=== PATIENT | male | born 1995 | race African-American/Black ===

== ENCOUNTER 2017-05-03 11:39 | Emergency (ER) | payer OTHER ==
[~2017-05-03] VITALS: Ht 190.5 cm; Wt 118.0 kg
[2017-05-03 11:40] VITALS: BP 165/74; PULSE 107; RESP 16; TEMP 98; O2SAT 99
--- NOTE | 2017-05-03 12:31 | PD ---
HPI Chief Complaint: Musculoskeletal Complaint Time Seen by Provider: 12:04 Travel History International Travel<30 days: No Contact w/Intl Traveler<30days: No Traveled to known affect area: No History of Present Illness HPI 21-year-old -[place] male presents the emergency department with 2 week history of right knee pain and swelling. Patient states he injured it playing basketball 2 weeks ago. He has continued discomfort, effusion, and the feeling that is going to give out while walking. Patient states she has had a similar injury to this knee years ago without orthopedic follow-up. Patient denies numbness, tingling, or weakness. He has been taking [id number]-ocyvdpr ibuprofen and icing it frequently, but his symptoms have persisted which is why he came in today. Patient attends school here, but has an orthopedic in [place] patient states his pain is about a 6 out of 10. He has no known drug allergies per [facility] Past Medical History Hx Anticoagulant Therapy: No Cardiovascular Problems: No Chemotherapy: No Cerebrovascular Accident: No Diabetes: No Respiratory: No Social History Alcohol Use: No Tobacco Use: No Substance Use: No Allergies-Medications (Allergen,Severity, Reaction): Coded Allergies: No Known Allergies (Verified Allergy, Unknown, 05/03/17) Review of Systems Except as stated in HPI: all other systems reviewed are Neg General / Constitutional: No: Fever Eyes: No: Visual changes HENT: No: Headaches Cardiovascular: No: Chest Pain or Discomfort Respiratory: No: Shortness of Breath Gastrointestinal: No: Abdominal Pain Genitourinary: No: Dysuria Musculoskeletal: Positive: Arthralgias, Limited ROM, Pain Skin: No Rash Neurologic: No: Weakness Psychiatric: No: Depression Endocrine: No: Polydipsia Hematologic/Lymphatic: No: Easy Bruising Physical Exam Narrative GENERAL: Patient appears in no acute distress. SKIN: Warm and dry. Normal color. Normal turgor. No abrasions or rash HEAD: Atraumatic. Normocephalic. EYES: Pupils equal and round. No scleral icterus. No injection or drainage. ENT: No nasal bleeding or discharge. Mucous membranes pink and moist. Pharynx is clear. Airways patent. NECK: Trachea midline. Supple and nontender. CARDIOVASCULAR: Regular rate and rhythm. RESPIRATORY: No accessory muscle use. Clear to auscultation. Breath sounds equal bilaterally. MUSCULOSKELETAL: Extremities without clubbing, cyanosis, or edema. No obvious deformities. Right knee has mild effusion bilaterally. He has no significant laxity appreciated by exam. Negative Vale's test. Patient is pain with palpation along both medial and lateral joint lines. No crepitus is noted with flexion or extension NEUROLOGICAL: Awake and alert. No obvious cranial nerve deficits. Motor grossly within normal limits. Five out of 5 muscle strength in the arms and legs. Normal speech. PSYCHIATRIC: Appropriate mood and affect; insight and judgment normal. Data Data Last Documented VS Vital Signs Date Time Temp Pulse Resp B/P (MAP) Pulse Ox O2 Delivery O2 Flow Rate FiO2 05/03/17 11:40 98.0 107 16 165/74 (104) 99 Orders Orders Knee, Complete (4vws) (05/03/17 12:05) Ice/Cold Pack (05/03/17 12:05) Splint Or Brace Apply/Monitor (05/03/17 13:03) [facility] Medical Decision Making Medical Screen Exam Complete: Yes Emergency Medical Condition: Yes Differential Diagnosis Right knee sprain. Right knee effusion. Possible ligament sprain. Possible cartilage tear. Narrative Course X-ray of the right knee is ordered. X-ray shows: Four view examination of the right knee demonstrates no evidence of fracture or dislocation. Bony mineralization is normal. The articular surfaces are intact. The suprapatellar soft tissues have a normal configuration. Patient is placed in a knee immobilizer. Patient is given ibuprofen 800 mg 3 times daily with food #30 Patient is referred to Dr. Valenzuela, the orthopedic on-call for follow-up, or the patient can go to his orthopedist in [place] for follow-up. Diagnosis Primary Impression: Knee effusion, right Referrals: Simone Valenzuela MD Patient Instructions: General Instructions, Knee Immobilizer (DC), Swollen Knee Joint (ED) Additional Instructions: X-ray shows: Four view examination of the right knee demonstrates no evidence of fracture or dislocation. Bony mineralization is normal. The articular surfaces are intact. The suprapatellar soft tissues have a normal configuration. Patient is placed in a knee immobilizer. Patient is given ibuprofen 800 mg 3 times daily with food #30 Patient is referred to Dr. Valenzuela, the orthopedic on-call for follow-up, or the patient can go to his orthopedist in [place] for follow-up. Med/Other Pt SpecificInfo: Prescription(s) given Disposition: 01 DISCHARGE HOME Condition: Stable Len Vargas May 03, 2017 12:31
--- NOTE | 2017-05-03 13:25 | RADRPT ---
EXAM DATE/TIME: 05/03/2017 13:09 [facility] COMPARISON: No previous studies available for comparison. INDICATIONS : Pain and swelling post fall. MEDICAL HISTORY : None. SURGICAL HISTORY : None. ENCOUNTER: Initial ACUITY: 2 weeks PAIN SCORE: 6/10 LOCATION: Right Knee. FINDINGS: Four view examination of the right knee demonstrates no evidence of fracture or dislocation. Bony mi neralization is normal. The articular surfaces are intact. The suprapatellar soft tissues have a no rmal configuration. CONCLUSION: No evidence of recent bone injury. Fam Dowling MD on May 03, 2017 at 13:23 Board Certified Radiologist. This report was verified electronically.
[2017-05-03] MEDS ORDERED: IBUP1TAB7 PO (13:28)
== END 2017-05-03 14:07 | disposition home or self-care (01) ==
LOC: NEPK 11:39
DX: M25.461 Effusion, right knee (principal)
CPT/HCPCS: 73564; 99283; L1830